=== PATIENT | male | born 1960 | race Caucasian/White ===

== ENCOUNTER 2019-08-06 07:15 | Emergency (ER) | payer BC, OTHER ==
[~2019-08-06] VITALS: Ht 170 cm; Wt 144.8 kg
--- NOTE | 2019-08-06 07:50 | ED GU-Male ---
General Chief Complaint: Male Reproductive Stated Complaint: TESTICULAR SWELLING Nursing Triage Note: Patient states his R testicle started swelling and hurting late yesterday afternoon. Denies trauma to the area. Pain is rated at 3/10 and has been taking aleve for the pain. Denies being sexually active or having any recent new sexual partners. History of Present Illness Date Seen by Provider: Aug 06, 2019 Time Seen by Provider: 07:47 Initial Comments Patient is here with a swollen right testicle works nights and hasn't slept all day he woke up in the right testicle swollen and hard left was normal no history of injuries that he did pull a board and felt a strain which was slight quite a while prior to anything happening here. No fever no chills no changes in his urinary stream Timing/Duration: just prior to arrival Severity/Quality: moderate Location: scrotal Radiation: none Activities at Onset: sleep Associated Symptoms: No abdominal pain, No nausea/vomiting; swelling Allergies and Home Medications Allergies Coded Allergies: No Known Drug Allergies (Unverified , 08/06/19) Patient Home Medication List Home Medication List Reviewed: Yes Review of Systems Review of Systems Constitutional: No chills, No fever EENTM: No hoarseness, No throat pain Respiratory: No cough, No short of breath Cardiovascular: No chest pain, No palpitations Gastrointestinal: No abdominal pain, No nausea, No vomiting Genitourinary: denies dysuria, denies frequency Musculoskeletal: No joint pain, No joint swelling, No muscle pain Skin: No lesions, No rash Psychiatric/Neurological: Denies Numbness, Denies Tingling, Denies Weakness Past Whnhclc-Tabyxn-[id number] Hx Past Med/Social Hx: Reviewed Nursing Past Med/Soc Hx Patient Social History Alcohol Use: Denies Use Recreational Drug Use: No 2nd Hand Smoke Exposure: No Recent Foreign Travel: No Contact w/Someone Who Travel: No Recent Infectious Disease Expo: No Recent Hopitalizations: No Physical Abuse: No Sexual Abuse: No Mistreated: No Fear: No Seasonal Allergies Seasonal Allergies: No Past Medical History Surgeries: Yes (eustachian tube) Respiratory: No Cardiac: No Neurological: No Genitourinary: No Gastrointestinal: No Musculoskeletal: No Endocrine: No HEENT: No Cancer: No Psychosocial: No Integumentary: No Blood Disorders: No Adverse Reaction/Blood Tranf: No Physical Exam Vital Signs Vital Signs - First Documented 08/06/19 07:32 Temp 35.5 Pulse 98 Resp 16 B/P (MAP) 166/95 (118) Pulse Ox 95 Capillary Refill : Less Than 3 Seconds Height, Weight, BMI Height: '" Weight: lbs. oz. kg; 50.00 BMI Method: General Appearance: WD/WN, no apparent distress HEENT: PERRL/EOMI, TMs normal, pharynx normal Neck: full range of motion Cardiovascular: regular rate, rhythm, no murmur Respiratory: lungs clear, normal breath sounds Gastrointestinal: normal bowel sounds, non tender, soft Male: other (markedly swollen right tender testicle indurated skin over the scrotum and left is negative some edema of the foreskin as well) Extremities: normal range of motion, non-tender Neurologic/Psychiatric: alert, normal mood/affect, oriented x 3 Skin: normal color, warm/dry Progress/Results/Core Measures Suspected Sepsis Recent Fever Within 48 Hours: No Infection Criteria Present: None New/Unexplained Altered Menta: No Sepsis Screen: No Definite Risk SIRS Temperature: Pulse: 98 Respiratory Rate: 16 Blood Pressure 166 /95 Mean: 118 Results/Orders Lab Results Laboratory Tests Test 08/06/19 08:20 Range/Units Urine Color KAYCEE H Urine Clarity CLEAR Urine pH 5.5 5-9 Urine Specific [place] >=1.030 1.016-1.022 Urine Protein 1+ H NEGATIVE Urine Glucose (UA) NEGATIVE NEGATIVE Urine Ketones 1+ H NEGATIVE Urine Nitrite NEGATIVE NEGATIVE Urine Bilirubin 1+ H NEGATIVE Urine Urobilinogen 0.2 < = 1.0 MG/DL Urine Leukocyte Esterase 1+ H NEGATIVE Urine RBC (Auto) 1+ H NEGATIVE Urine RBC 10-25 H /HPF Urine WBC 25-50 H /HPF Urine Squamous Epithelial Cells 2-5 /HPF Urine Crystals NONE /LPF Urine Bacteria NEGATIVE /HPF Urine Casts NONE /LPF Urine Mucus MODERATE H /LPF Urine Culture Indicated YES My Orders Orders - GAYLE LOPEZ JR, MD Ua Culture If Indicated (08/06/19 07:46) Urine Culture (08/06/19 08:20) Ceftriaxone For Im Use (Rocephin For Im (08/06/19 09:00) Lidocaine 1% Inj 20 Ml (Xylocaine 1% Inj (08/06/19 09:00) Vital Signs/I&O 08/06/19 07:32 Temp 35.5 Pulse 98 Resp 16 B/P (MAP) 166/95 (118) Pulse Ox 95 Capillary Refill : Less Than 3 Seconds Blood Pressure Mean: 118 Progress Note : Time: 08:58 Progress Note Urine looked pretty messy will go ahead with Rocephin injection treating him as an outpatient with Augmentin did talk to Dr. Jeff Rinaldi's ER doc overwritten available surgery that we'll be sending him over by private vehicle for ultrasound of this testicle. Realizes that O have surgery there but also realizing that odds are that this is nothing more than a cellulitis or epididymitis. He accepted in transfer Departure Impression Primary Impression: Epididymitis Disposition: XFER SHT-TRM HOSP Condition: Stable Transfer Transfer Reason: Exceeds level of care Time Spoke to Accepting Phy: 09:00 Transfer Progress Notes Discussed swollen right testicle with Dr. Jeff Rinaldi at the [facility] will transfer by private vehicle to Hospital for ultrasound. Method of Transfer: Private Vehicle Departure-Patient Inst. Patient Instructions: Epididymitis (DC) Scripts Amoxicillin/Potassium Clav (Augmentin [id number] Tablet) 1 Each Tablet 1 EACH PO BID, #20 TAB 0 Refills Prov: GAYLE LOPEZ JR, MD 08/06/19 Work/School Note: Work Release Form Date Seen in the Emergency Department: Aug 06, 2019 Return to Work: Aug 08, 2019 Restrictions: No Restrictions Other Restrictions Listed Below: Off work for 48 hours GAYLE LOPEZ JR, MD Aug 06, 2019 07:50
[2019-08-06 08:38] LABS: COLOR,URINE AMBER
[2019-08-06 08:39] LABS: BACTERIA,URINE NEGATIVE /HPF; BILIRUBIN,URINE 1+ (NEGATIVE); CLARITY,URINE CLEAR; GLUCOSE, URINE (UA) NEGATIVE (NEGATIVE); KETONES,URINE 1+ (NEGATIVE); LEUKOCYTE ESTERASE ,URINE 1+ (NEGATIVE); NITRITE,URINE NEGATIVE (NEGATIVE); PH,URINE 5.5 (5-9); PROTEIN,URINE 1+ (NEGATIVE); WBC,URINE 25-50 /HPF
[2019-08-06] MEDS ORDERED: cefTRIAXone FOR IV USE 1,000 MG in WATER (STERILE) FOR INJECTION 10 ML IV ONE (08:45)
[2019-08-06] MEDS ORDERED: cefTRIAXone 1,000 MG/2.86 ml vial (IM ONLY) IM SCH (09:00)
[2019-08-06] MEDS ORDERED: LIDOCAINE 1% INJ 20 ML 20 ML VIAL INJ ONE (09:00)
[2019-08-06] MEDS ORDERED: AMOX-358 PO (09:01)
[2019-08-06 09:22] VITALS: BP 154/78
== END 2019-08-06 09:29 | disposition short-term general hospital (02) ==
LOC: ER FS 07:19
DX: N45.1 Epididymitis (principal)
CPT/HCPCS: 81000; 87077; 87088; 96372; 99284